=== PATIENT | female | born 1970 | race Asian ===

== ENCOUNTER 2019-02-02 16:29 | Observation (INO) | payer BC ==
[~2019-02-02] VITALS: Ht 170.2 cm; Wt 85.3 kg
[2019-02-02 16:40] VITALS: BP 148/83; TEMP 98.1
[2019-02-02 17:26] LABS: PLATELET COUNT 546 K/uL (152-353)
[2019-02-02 17:29] LABS: POTASSIUM 3.3 mmol/L (3.6-5.2); SODIUM 138 mmol/L (136-145)
[2019-02-02 18:00] VITALS: BP 120/74
[2019-02-02 19:00] VITALS: BP 125/74
[2019-02-02] MEDS ORDERED: OMEPRAZOLE DR40 MG PO (19:43)
[2019-02-02] MEDS ORDERED: [UNRECOGNIZED DRUG - CODE] PO (19:43)
[2019-02-02] MEDS ORDERED: METFTAB PO (19:44)
[2019-02-02] MEDS ORDERED: VIMPAT100 MG PO (19:45)
[2019-02-02] MEDS ORDERED: BISOPROL FUM5 MG PO (19:46)
[2019-02-02] MEDS ORDERED: SPRITAM1000 MG PO (19:46)
[2019-02-02 19:50] VITALS: BP 148/94
[2019-02-02 23:46] VITALS: BP 139/81; TEMP 97.7; Ht 170.2 cm; Wt 85.3 kg
[2019-02-03] VITALS: BP 119/67; TEMP 98.4
[2019-02-03 03:38] LABS: PARTIAL THROMBOPLASTIN TIME 24.3 SECONDS (24.5-33.6)
[2019-02-03 04:00] VITALS: BP 108/58; TEMP 98.2
[2019-02-03 08:10] VITALS: BP 116/58; TEMP 98.2
[2019-02-03 09:43] LABS: POTASSIUM 3.7 mmol/L (3.6-5.2)
[2019-02-03 09:52] LABS: PLATELET COUNT 509 K/uL (152-353)
[2019-02-03 12:06] VITALS: BP 136/80; TEMP 97.6
== END 2019-02-03 14:22 | disposition home or self-care (01) ==
LOC: ED 16:29 → MED/SURG 19:20
PROVIDERS: Family Medicine; ADMIT Family Medicine
DX: R07.89 Other chest pain (principal); I10 Essential (primary) hypertension; K21.9 Gastro-esophageal reflux disease without esophagitis
CPT/HCPCS: 36415; 80053; 81000; 82550; 83735; 84484; 85027; 85610; 85730; 93005; 96374; 99220; 99284; G0378; J3490

== ENCOUNTER 2019-02-09 07:50 | Outpatient (CLI) | payer BC ==
[~2019-02-09 07:50] MED LIST: BISOPROL FUM5 MG PO; METFTAB PO; OMEPRAZOLE DR40 MG PO; SPRITAM1000 MG PO; VIMPAT100 MG PO; [UNRECOGNIZED DRUG - CODE] PO
== END 2019-02-09 20:13 | disposition home or self-care (01) ==
LOC: NM 07:50
DX: R07.9 Chest pain, unspecified (principal)
CPT/HCPCS: A9500

== ENCOUNTER 2020-08-21 13:57 | Outpatient (CLI) | payer BC | END 2020-08-21 16:00 | disposition home or self-care (01) | LOC: INF 13:57 | PROVIDERS: ATTEND Family Medicine | DX: D50.9 Iron deficiency anemia, unspecified (principal) | CPT/HCPCS: 96365 ==

== ENCOUNTER 2020-08-28 08:36 | Outpatient (CLI) | payer BC ==
[~2020-08-28] VITALS: Ht 170.2 cm; Wt 77.1 kg
== END 2020-08-28 09:39 | disposition home or self-care (01) ==
LOC: INF 08:36
PROVIDERS: ATTEND Family Medicine
DX: D50.9 Iron deficiency anemia, unspecified (principal)
CPT/HCPCS: 96365; J1439

== ENCOUNTER 2020-10-27 11:09 | Emergency (ER) | payer BC ==
[~2020-10-27] VITALS: Ht 170.2 cm; Wt 83.9 kg
[2020-10-27 11:15] VITALS: TEMP 97.9
[2020-10-27 12:13] LABS: PLATELET COUNT 372 K/uL (152-353)
[2020-10-27 12:22] LABS: POTASSIUM 2.9 mmol/L (3.6-5.2); SODIUM 139 mmol/L (136-145)
[2020-10-27 16:25] VITALS: BP 131/64
== END 2020-10-27 16:25 | disposition home or self-care (01) ==
LOC: ED 11:09
PROVIDERS: Emergency Medicine Emergency Medical Services
DX: R07.89 Other chest pain (principal); E87.6 Hypokalemia; E83.42 Hypomagnesemia
CPT/HCPCS: 36415; 80053; 83735; 84484; 85027; 85379; 85610; 93005; 96360; 96361; 96365; 99284; J3475

== ENCOUNTER 2020-12-08 09:00 | Outpatient (CLI) | payer BC | END 2020-12-08 19:30 | disposition home or self-care (01) | LOC: RESP 09:00 | PROVIDERS: ATTEND Nurse Practitioner Family | DX: R07.9 Chest pain, unspecified (principal) ==

== ENCOUNTER 2020-12-10 08:48 | Outpatient (CLI) | payer BC | END 2020-12-10 20:04 | disposition home or self-care (01) | LOC: NM 08:48 | PROVIDERS: ATTEND Nurse Practitioner Family | DX: R07.9 Chest pain, unspecified (principal) | CPT/HCPCS: A9500 ==

== ENCOUNTER 2021-02-28 10:48 | Emergency (ER) | payer BC ==
[~2021-02-28] VITALS: Ht 170.2 cm; Wt 83.9 kg
[2021-02-28 10:54] VITALS: TEMP 97.8
[2021-02-28 11:44] VITALS: BP 148/97
== END 2021-02-28 11:44 | disposition home or self-care (01) ==
LOC: ED 10:48
DX: M79.601 Pain in right arm (principal)
CPT/HCPCS: 96372; 99283; J1885

== ENCOUNTER 2021-06-17 16:03 | Outpatient (CLI) | payer BC | END 2021-06-17 19:20 | disposition home or self-care (01) | LOC: US 16:03 | PROVIDERS: ATTEND Nurse Practitioner Family | DX: E04.1 Nontoxic single thyroid nodule (principal) ==

== ENCOUNTER 2022-03-26 09:11 | Outpatient (CLI) | payer BC | END 2022-03-26 19:25 | disposition home or self-care (01) | LOC: CT 09:11 | PROVIDERS: ATTEND Nurse Practitioner Primary Care | DX: R05.3 Chronic cough (principal) | CPT/HCPCS: 36415; 82565; 84520; Q9963 ==

== ENCOUNTER 2022-04-16 01:25 | Emergency (ER) | payer BC ==
[~2022-04-16] VITALS: Ht 170.2 cm; Wt 86.2 kg
[2022-04-16 03:10] VITALS: BP 151/79; TEMP 98.1
== END 2022-04-16 03:15 | disposition home or self-care (01) ==
LOC: ED 01:25
DX: M70.21 Olecranon bursitis, right elbow (principal); Y93.89 Activity, other specified
CPT/HCPCS: 99283; J1885; J2405

== ENCOUNTER 2022-08-19 08:30 | Outpatient (CLI) | payer BC | END 2022-08-19 18:59 | disposition home or self-care (01) | LOC: US 08:30 | PROVIDERS: ATTEND Nurse Practitioner Family | DX: R23.1 Pallor (principal) ==

== ENCOUNTER 2022-09-13 07:59 | Outpatient (CLI) | payer BC | END 2022-09-13 19:09 | disposition home or self-care (01) | LOC: US 07:59 | PROVIDERS: ATTEND Nurse Practitioner Family | DX: I70.209 Unspecified atherosclerosis of native arteries of extremities, unspecified extremity (principal); I10 Essential (primary) hypertension ==